=== PATIENT | male | born 1980 | race Caucasian/White ===

== ENCOUNTER 2017-10-19 12:45 | Emergency (ER) | payer OTHER ==
[~2017-10-19] VITALS: Ht 172.7 cm; Wt 96.6 kg
[2017-10-19] MEDS ORDERED: IBUPROFEN 600 MG TABLET PO ONE ×2 (13:30→13:39)
[2017-10-19] MEDS ORDERED: ACETAMINOPHEN 650 MG/20.3 ML UDC PO ONE (13:30)
[2017-10-19] MEDS ORDERED: ACETAMINOPHEN 325 MG TABLET ONE (13:38)
--- NOTE | 2017-10-19 13:42 | NUR ---
PT REC'D TO ER C/O LEFT SHOULDER PPAIN 04/27 HX BURISTIS MEDS GIVEN PER MD ORDER
--- NOTE | 2017-10-19 15:16 | NUR ---
PT. VERBALIZED UNDERSTANDING OF AFTERCARE INSTRUCTIONS.Patient discharged to home in stable condition. Written and verbal after care instructions given. Patient verbalizes understanding of instruction.
[2017-10-19 15:19] VITALS: BP 137/73
== END 2017-10-19 15:21 | disposition home or self-care (01) ==
LOC: ER 12:48
DX: R07.89 Other chest pain (principal); E78.00 Pure hypercholesterolemia, unspecified
CPT/HCPCS: 71045; 99283; A4606; Z7610